=== PATIENT | female | born 1955 | race Caucasian/White ===

== ENCOUNTER 2016-10-31 22:33 | Emergency (ER) | payer SELFPAY ==
[~2016-10-31 22:33] MED LIST: ZITH250T PO
[2016-10-31 22:35] VITALS: BP 163/86; PULSE 78; RESP 16; TEMP 98.3; O2SAT 98
== END 2016-10-31 23:00 | disposition left against medical advice (07) ==
LOC: NED 22:33
DX: R55 Syncope and collapse (principal)
CPT/HCPCS: 99281

== ENCOUNTER 2017-07-06 11:05 | Emergency (ER) | payer SELFPAY ==
[~2017-07-06] VITALS: Ht 162.6 cm; Wt 100.0 kg
[2017-07-06 11:07] VITALS: BP 193/124; PULSE 105; RESP 20; TEMP 99; O2SAT 95
[2017-07-06 11:48] LABS: AUTOMATED NEUTROPHIL # 4.1 TH/MM3 (1.8-7.7); BASOPHIL % 0.6 % (0.0-2.0); EOSINOPHIL % 0.7 % (0.0-4.0); HEMATOCRIT 46.4 % (35.0-46.0); HEMOGLOBIN 15.7 GM/DL (11.6-15.3); LYMPH % 28.2 % (9.0-44.0); LYMPHOCYTE # 1.8 TH/MM3 (1.0-4.8); MEAN CELL VOLUME 96.2 FL (80.0-100.0); MEAN CORPUSCULAR HEMOGLOBIN 32.6 PG (27.0-34.0); MEAN CORPUSCULAR HGB CONC 33.9 % (32.0-36.0); MEAN PLATELET VOLUME 7.3 FL (7.0-11.0); MONO % 6.9 % (0.0-8.0); MONOCYTE # 0.4 TH/MM3 (0-0.9); NEUT % 63.6 % (16.0-70.0); PLATELET COUNT 306 TH/MM3 (150-450); RED BLOOD COUNT 4.82 MIL/MM3 (4.00-5.30); RED CELL DISTRIBUTION WIDTH 13.4 % (11.6-17.2); WHITE BLOOD COUNT 6.5 TH/MM3 (4.0-11.0)
[2017-07-06 11:55] LABS: INTERNATIONAL NORMALIZED RATIO 1.1 RATIO; PROTHROMBIN TIME - PATIENT 10.8 SEC (9.8-11.6)
[2017-07-06 11:58] LABS: ALBUMIN 3.8 GM/DL (3.4-5.0); ALT (GPT) 81 U/L (10-53); AST (GOT) 101 U/L (15-37); BLOOD UREA NITROGEN 6 MG/DL (7-18); CALCIUM 8.8 MG/DL (8.5-10.1); CHLORIDE 100 MEQ/L (98-107); CREATININE 0.87 MG/DL (0.50-1.00); GLOMERULAR FILTRATION RATE 66 ML/MIN (>89); GLUCOSE,RANDOM 93 MG/DL (74-106); SODIUM (NA) 136 MEQ/L (136-145)
[2017-07-06 12:01] LABS: ALKALINE PHOSPHATASE 81 U/L (45-117); TOTAL BILIRUBIN ADULT 0.9 MG/DL (0.2-1.0); TOTAL PROTEIN 8.7 GM/DL (6.4-8.2)
[2017-07-06] MEDS ORDERED: THYROXIN (12:33)
[2017-07-06 13:17] VITALS: BP 179/89; PULSE 98; RESP 24; O2SAT 99
[2017-07-06] MEDS ORDERED: chlordiazePOXIDE 25 MG CAP PO ONE (13:30)
--- NOTE | 2017-07-06 13:51 | PD ---
HPI Chief Complaint: Medical Clearance Time Seen by Provider: 13:08 Travel History International Travel<30 days: No Contact w/Intl Traveler<30days: No Traveled to known affect area: No History of Present Illness HPI The patient was seen and examined in the presence of the nurse. This patient comes with her . She is an alcoholic. She's been drinking heavily for years. She drinks at least 6-8 drinks daily. She was drinking heavily all weekend. She comes today for detox. She tried inpatient rehabilitation once many years ago and refuses to try that again. Severity is moderate. No alleviating factors. No exacerbating factors. Duration many years PFSH Past Medical History Depression: Yes Diminished Hearing: No Hypertension: Yes Respiratory: Yes (dry non productive cough, x 6 years) Thyroid Disease: Yes ?: Not Menopausal: Yes Social History Alcohol Use: Yes (way to much, over the weekend 24 beers with vodka) Tobacco Use: No Substance Use: No Allergies-Medications (Allergen,Severity, Reaction): Coded Allergies: penicillin G (Unverified Allergy, Severe, 11/24/16) Reported Meds & Prescriptions Reported Meds & Active Scripts Active Reported [thyroxin] 137 DAILY Review of Systems General / Constitutional: No: Fever Eyes: No: Visual changes HENT: No: Headaches Cardiovascular: No: Chest Pain or Discomfort Respiratory: No: Shortness of Breath Gastrointestinal: No: Abdominal Pain Genitourinary: No: Dysuria Musculoskeletal: No: Pain Skin: No Rash Neurologic: No: Weakness Psychiatric: Positive: Substance Abuse, No: Depression Endocrine: No: Polydipsia Hematologic/Lymphatic: No: Easy Bruising Physical Exam Narrative GENERAL: Well-nourished, well-developed patient in no apparent distress. SKIN: Focused skin assessment reveals no rash and nodules. Skin is Warm and dry. HEAD: Atraumatic. Normocephalic. EYES: Pupils equal and round. No scleral icterus. No injection or drainage. ENT: No nasal bleeding or discharge. Mucous membranes pink and moist. NECK: Trachea midline. No JVD. CARDIOVASCULAR: Regular rate and rhythm. No murmur appreciated. RESPIRATORY: No accessory muscle use. Clear to auscultation. Breath sounds equal bilaterally. GASTROINTESTINAL: Abdomen soft, non-tender, nondistended. Hepatic and splenic margins not palpable. MUSCULOSKELETAL: No obvious deformities. No clubbing. No cyanosis. No edema. NEUROLOGICAL: Awake and alert. No obvious cranial nerve deficits. Motor grossly within normal limits. Normal speech. PSYCHIATRIC: Anxious mood and affect; insight and judgment seems weak Data Data Last Documented VS Vital Signs Date Time Temp Pulse Resp B/P (MAP) Pulse Ox O2 Delivery O2 Flow Rate FiO2 07/06/17 13:17 98 24 179/89 (119) 99 Room Air 07/06/17 11:07 99.0 Orders Orders Complete Blood Count With Diff (07/06/17 11:09) Comprehensive Metabolic Panel (07/06/17 11:09) Prothrombin Time / Inr (Pt) (07/06/17 11:09) Act Partial Throm Time (Ptt) (07/06/17 11:09) Alcohol (Ethanol) (07/06/17 11:09) Chlordiazepoxide (Librium) (07/06/17 13:30) Labs Laboratory Tests Test 07/06/17 11:25 White Blood Count 6.5 TH/MM3 Red Blood Count 4.82 MIL/MM3 Hemoglobin 15.7 GM/DL Hematocrit 46.4 % Mean Corpuscular Volume 96.2 FL Mean Corpuscular Hemoglobin 32.6 PG Mean Corpuscular Hemoglobin Concent 33.9 % Red Cell Distribution Width 13.4 % Platelet Count 306 TH/MM3 Mean Platelet Volume 7.3 FL Neutrophils (%) (Auto) 63.6 % Lymphocytes (%) (Auto) 28.2 % Monocytes (%) (Auto) 6.9 % Eosinophils (%) (Auto) 0.7 % Basophils (%) (Auto) 0.6 % Neutrophils # (Auto) 4.1 TH/MM3 Lymphocytes # (Auto) 1.8 TH/MM3 Monocytes # (Auto) 0.4 TH/MM3 Eosinophils # (Auto) 0.0 TH/MM3 Basophils # (Auto) 0.0 TH/MM3 CBC Comment DIFF FINAL Differential Comment Prothrombin Time 10.8 SEC Prothromb Time International Ratio 1.1 RATIO Activated Partial Thromboplast Time 28.8 SEC Blood Urea Nitrogen 6 MG/DL Creatinine 0.87 MG/DL Random Glucose 93 MG/DL Total Protein 8.7 GM/DL Albumin 3.8 GM/DL Calcium Level 8.8 MG/DL Alkaline Phosphatase 81 U/L Aspartate Amino Transf (AST/SGOT) 101 U/L Alanine Aminotransferase (ALT/SGPT) 81 U/L Total Bilirubin 0.9 MG/DL Sodium Level 136 MEQ/L Potassium Level 3.9 MEQ/L Chloride Level 100 MEQ/L Carbon Dioxide Level 24.0 MEQ/L Anion Gap 12 MEQ/L Estimat Glomerular Filtration Rate 66 ML/MIN Ethyl Alcohol Level 71 MG/DL MDM Medical Decision Making Medical Screen Exam Complete: Yes Emergency Medical Condition: Yes Medical Record Reviewed: Yes Differential Diagnosis Alcohol intoxication, alcoholism, anxiety Narrative Course I have reviewed the patient's electronic medical record. IV placed and labs sent I review the labs Alcohol is 71 Minor elevation of LFTs is expected Patient was significantly hypertensive on arrival but is improved at this time. 180s systolic I advised her to check and recorded daily Follow-up with primary care Offered to look into putting her in to [facility] inpatient rehabilitation which she refuses I will give her the address of the outpatient access Center to get some alcohol rehabilitation services I gave her dose of Librium here and a prescription for a few more use as needed She is not in significant alcohol withdrawal at this time Diagnosis Primary Impression: Alcoholism /alcohol abuse Additional Instructions: The patient was advised to follow up with their physician and return if they worsen. Recommend intake visit at [address] [place] [address]. The patient was warned about potential sedation for the medications they will receive on prescription. Med/Other Pt SpecificInfo: Prescription(s) given Disposition: 01 DISCHARGE HOME Condition: Stable Forest Angel MD Jul 06, 2017 13:51
[2017-07-06] MEDS ORDERED: CHLO25CA9 PO (13:52)
[2017-07-09] MEDS ORDERED: LEVO137T2 PO (12:10)
== END 2017-07-06 15:17 | disposition home or self-care (01) ==
LOC: NEPD 11:05
DX: F10.10 Alcohol abuse, uncomplicated (principal); F32.9 Major depressive disorder, single episode, unspecified; I10 Essential (primary) hypertension; E07.9 Disorder of thyroid, unspecified; Y90.3 Blood alcohol level of 60-79 mg/100 ml; Z88.0 Allergy status to penicillin; Z79.899 Other long term (current) drug therapy
CPT/HCPCS: 80053; 80307; 85025; 85610; 85730; 99283